=== PATIENT | male | born 1990 | race African-American/Black ===

== ENCOUNTER 2017-03-20 11:32 | Emergency (ER) | payer OTHER ==
[~2017-03-20] VITALS: Ht 172.7 cm; Wt 63.5 kg
[2017-03-20 12:43] LABS: INFLUENZA A NEG (NEG); INFLUENZA B NEG (NEG)
== END 2017-03-20 13:11 | disposition home or self-care (01) ==
LOC: CFTX 11:32 → CED 11:32 → CFTX 12:23
PROVIDERS: Nurse Practitioner
DX: J06.9 Acute upper respiratory infection, unspecified (principal); F17.210 Nicotine dependence, cigarettes, uncomplicated
CPT/HCPCS: 87651; 87804; 99283